=== PATIENT | female | born 1965 | race Caucasian/White ===

== ENCOUNTER 2018-10-22 08:21 | Inpatient (IN) ==
[2018-10-22] MEDS ORDERED: Metoprolol Tartrate 25 MG Tablet PO ONE (09:00)
[2018-10-22] MEDS ORDERED: Sodium Chlor 0.9% Inj 500 ML IV.CONT ONE (09:00)
[2018-10-22] MEDS ORDERED: Chlorhexidine Gluconate 2% 1 Pack (2 Cloths) TOPICAL ONE (09:00)
[2018-10-22] MEDS ORDERED: ceFAZolin 2 GM IV; once IV.SIG ONE (10:00)
[2018-10-22] MEDS ORDERED: Bupivacaine/Epinephrine PF Inj 0.5% 30 ML Vial ONE (11:38)
[2018-10-22] MEDS ORDERED: fentaNYL Citrate Inj 250 MCG/5 ML Ampul ONE (11:48)
[2018-10-22] MEDS ORDERED: Post-op Orders (for Pharmacy) OTHER STA (13:22)
[2018-10-22] MEDS ORDERED: diphenhydrAMINE HCl 12.5 MG/5 ML Elixir UDC PO PRN (13:22)
[2018-10-22] MEDS ORDERED: Naloxone Inj 0.4 MG/ML Vial IV.PUSH PRN (13:25)
[2018-10-22] MEDS ORDERED: Morphine Inj 30 MG/30 ML PCA.VIAL PCA PRN (13:25)
[2018-10-22] MEDS ORDERED: Sugammadex Inj 200 MG/2 ML Vial IV.PUSH ONE (13:36)
[2018-10-22] MEDS ORDERED: *morphine SULFATE 4 MG/ML PERIprocedure ONLY ONE ×3 (13:55→15:09)
[2018-10-22] MEDS ORDERED: Morphine Inj 30 MG/30 ML PCA.VIAL PCA ONE (13:55)
[2018-10-22] MEDS ORDERED: KCL 20 mEq/D5W/NaCl 0.45% Inj 1,000 ML ONE (13:55)
[2018-10-22] MEDS ORDERED: Scopalamine 1.5 MG Patch T-DERMAL PRN (14:55)
[2018-10-22] MEDS ORDERED: REMOVE OLD SCOPOLAMINE PATCH T-DERMAL PRN (15:00)
[2018-10-22] MEDS: KCL 20 mEq/D5W/NaCl 0.45% Inj 1,000 ML IV.CONT SCH ×2 (15:02→20:17)
[2018-10-22] MEDS: Enoxaparin Inj 40 MG/0.4 ML Syringe SQ SCH (19:14)
[2018-10-22] MEDS: ceFAZolin 1 GM Premix Inj 1 GM/50 ML IV.SIG SCH (20:13)
[2018-10-22] MEDS ORDERED: lamoTRIgine 25 MG TABLET PO ONE (23:45)
[2018-10-22] MEDS: Acetaminophen-HYDROcodone 325/7.5 Liq 15 ML UDC PO PRN (23:47)
[2018-10-23] MEDS: KCL 20 mEq/D5W/NaCl 0.45% Inj 1,000 ML IV.CONT SCH ×5 (00:02→19:31)
[2018-10-23] MEDS: ceFAZolin 1 GM Premix Inj 1 GM/50 ML IV.SIG SCH ×2 (04:32→12:26)
[2018-10-23 06:15] LABS: Eos % (Auto) 0.1 % (0.0-4.0); Hematocrit 36.1 % (35.0-46.0); Hemoglobin 12.5 gm/dL (11.6-15.3); Lymph % (Auto) 9.3 % (9.0-44.0); Mean Corpuscular HGB Conc 34.7 % (32.0-36.0); Mean Corpuscular Hemoglobin 31.7 pg (27.0-34.0); Mean Corpuscular Volume 91.4 fL (80.0-100.0); Mean Platelet Volume 9.9 fL (7.0-11.0); Mono # (Auto) 0.5 th/mm3 (0.0-0.9); Mono % (Auto) 4.4 % (0.0-8.0); Neut # (Auto) 9.4 th/mm3 (1.8-7.7); Neut % (Auto) 86.2 % (16.0-70.0); Platelet Count 230 th/mm3 (150-450); Red Blood Count 3.95 mil/mm3 (4.00-5.30); White Blood Count 10.9 th/mm3 (4.0-11.0)
[2018-10-23 06:30] LABS: Calcium 8.2 mg/dL (8.5-10.1); Magnesium 2.4 mg/dL (1.5-2.5); Potassium 4.6 meq/L (3.5-5.1)
[2018-10-23] MEDS ORDERED: lamoTRIgine 25 MG TABLET PO SCH ×2 (09:00→21:00)
--- NOTE | 2018-10-23 09:53 | P.PNGS ---
Subjective Patient reports: no new complaints (denies SOB, chest pain or palpitations. ), no flatus Physical Exam Vital signs: Vital Signs 10/22/18 13:43 10/22/18 14:00 10/22/18 14:15 Temperature 97.6 F Pulse Rate 96 H 72 85 Respiratory Rate 20 20 16 Blood Pressure 164/90 H 143/86 H 160/74 H Pulse Oximetry 90 L 96 96 10/22/18 15:00 10/22/18 15:15 10/22/18 17:07 Temperature 98.0 F 97.6 F Pulse Rate 70 64 67 Respiratory Rate 20 20 18 Blood Pressure 161/61 H 154/78 H 161/77 H Pulse Oximetry 97 97 90 L 10/22/18 20:00 10/22/18 22:50 10/23/18 00:00 Temperature 97.4 F L 97.6 F Pulse Rate 63 92 H 64 Respiratory Rate 18 16 18 Blood Pressure 125/71 156/73 H 135/84 Pulse Oximetry 92 L 92 L 94 L 10/23/18 02:01 10/23/18 04:00 10/23/18 07:54 Temperature 98.0 F 97.3 F L Pulse Rate 65 69 Respiratory Rate 18 18 Blood Pressure 113/72 128/68 Pulse Oximetry 92 L 95 98 10/23/18 08:00 Temperature 97.5 F L Pulse Rate 59 L Respiratory Rate 18 Blood Pressure 167/80 H Pulse Oximetry 96 Intake & Output 10/22/18 10/23/18 10/23/18 18:59 06:59 18:59 Intake Total 910 / 910 2480 / 2480 Output Total 5 / 5 1200 / 1200 Balance 905 / 905 1280 / 1280 Weight 96.3 kg 95.2 kg Intake: IV 850 / 850 2300 / 2300 D5W/1/2NS + KCL 20 mEq Inj 1, 2000 / 1999 000 ML @ 125 mls/hr IV.CONT . Q8H [facility] Rx#:[id number] LR 1000 mL Inj 1,000 ML @ 30 800 / 800 mls/hr IV.CONT .Q24H [facility] Rx#: [id number] Ofirmev Inj 1,000 mg In 100 ml 200 / 200 @ 400 mls/hr IV.SIG Q6H [facility] Rx# :[id number] Ancef 1 GM Premix Inj 1 gm In 100 / 100 50 ml @ 100 mls/hr IV.SIG Q8H [facility] Rx#:[id number] Ancef 2 GM Premix Inj 2 gm In 50 / 50 50 ml @ 100 mls/hr IV.SIG ONCE ONE Rx#:[id number] Oral 60 / 60 180 / 180 Output: Urine 1200 / 1200 Estimated Blood Loss 5 / 5 Other: Date of Last Bowel Movement 10/21/18 10/21/18 Weight On Admission 94 kg Narrative: GENERAL: SKIN: Warm and dry. HEAD: Normocephalic. EYES: No scleral icterus. No injection or drainage. NECK: Supple, trachea midline. No JVD or lymphadenopathy. CARDIOVASCULAR: Regular rate and rhythm without murmurs, gallops, or rubs. RESPIRATORY: Breath sounds equal bilaterally. No accessory muscle use. GASTROINTESTINAL: Abdomen soft, normal post operative tenderness, laparoscopic sites WNL, mildly distended. MUSCULOSKELETAL: No cyanosis, or edema. BACK: Nontender without obvious deformity. No CVA tenderness. Results - Labs 10/23/18 05:48 10/23/18 05:48 Laboratory Results - last 24 hr 10/23/18 10/23/18 05:48 05:48 WBC 10.9 RBC 3.95 L Hgb 12.5 Hct 36.1 MCV 91.4 MCH 31.7 MCHC 34.7 RDW 14.0 Plt Count 230 MPV 9.9 Neut % (Auto) 86.2 H Lymph % (Auto) 9.3 [place] % (Auto) 4.4 Eos % (Auto) 0.1 Baso % (Auto) 0.0 Neut # (Auto) 9.4 H Lymph # (Auto) 1.0 [place] # (Auto) 0.5 Eos # (Auto) 0.0 Baso # (Auto) 0.0 WBC Differential . Differential Comment Auto diff final Sodium 138 Potassium 4.6 Chloride 106 Carbon Dioxide 29.0 Anion Gap 3 L BUN 13 Creatinine 0.96 Estimated GFR 61 L Random Glucose 130 H Calcium 8.2 L Magnesium 2.4 Assessment and Plan - Assessment (1) Hypothyroidism Code(s): E03.9 - Hypothyroidism, unspecified Status: Chronic (2) Depression Code(s): F32.9 - Major depressive disorder, single episode, unspecified Status : Chronic (3) Status post laparoscopic sleeve gastrectomy Code(s): Z98.84 - Bariatric surgery status Status: Acute (4) Seizure disorder Code(s): G40.909 - Epilepsy, unspecified, not intractable, without status epilepticus Status: Chronic - Plan POD #1 s/p laparoscopic sleeve gastrectomy. tolerating clear liquids well, advance to full. Ambulate ad brianna Continue IS and SCD. Restart home meds. Code Status: full Discussed Condition With: patient (1) Hypothyroidism Qualifiers: Hypothyroidism type: unspecified Qualified Code(s): E03.9 - Hypothyroidism, unspecified (2) Depression Qualifiers: Depression Type: major depressive disorder
[2018-10-23] MEDS: Levothyroxine 50 MCG Tablet PO SCH (12:20)
[2018-10-23] MEDS: Duloxetine 60 MG DR Capsule PO SCH (12:21)
[2018-10-23] MEDS: Acetaminophen-HYDROcodone 325/7.5 Liq 15 ML UDC PO PRN ×2 (12:22→19:28)
[2018-10-23] MEDS: Enoxaparin Inj 40 MG/0.4 ML Syringe SQ SCH (19:28)
[2018-10-23] MEDS ORDERED: levETIRAcetam 500 MG Tablet PO SCH (22:30)
[2018-10-24] MEDS: lamoTRIgine 25 MG TABLET PO SCH ×3 (01:12→20:37)
[2018-10-24] MEDS: KCL 20 mEq/D5W/NaCl 0.45% Inj 1,000 ML IV.CONT SCH ×3 (01:13→14:25)
[2018-10-24] MEDS: Acetaminophen-HYDROcodone 325/7.5 Liq 15 ML UDC PO PRN ×3 (01:42→13:54)
[2018-10-24] MEDS: Levothyroxine 50 MCG Tablet PO SCH (05:56)
--- NOTE | 2018-10-24 08:44 | P.CONNEU ---
History of Present Illness Service: Neurology Primary Care Provider: Sabrina Paiz Chief Complaint: Seizure History of Present Illness: 53-year-old female admitted for abdominal surgery. Spell had an episode of altered mentation reduced responsiveness. She has a history of seizures neurology was consulted for further evaluation. Patient states she was given Narcan and her symptoms improved. States she had a history of seizures since teenage years. Overall well controlled last seizure was 8 months ago. Prior seizures usually has slurred speech followed by altered mentation stiffening occasionally incontinence occasional bite her tongue feel a bit confused afterwards but she will recollect and know that she had an event. On this particular occasion she states nothing like that occurred. She states she is really had full-blown G TCAs. She was on Lamictal however stopped taking it. She tolerated it well. She is followed by neurology in the [place] area. She otherwise doing well denies any headache visual loss focal weakness feels well. There is no family history of seizures febrile seizures or concussion injury. She states etiology for her seizures is not known. Review of Systems All other systems reviewed negative except as stated in HPI PMFSH - History History Provided By: Patient - Medical History Medical History: Medical History (Last Updated 10/22/18 @ 09:42 by Stephanie Hoffman) COPD (chronic obstructive pulmonary disease) Elevated LFTs Fatigue Sleep apnea Depression Hx of hysterectomy Hypothyroidism Seizure - Surgical History Surgical History: Surgical History (Last Reviewed 10/22/18 @ 09:12 by Stephanie Hoffman) Hx of removal of ovary Hx of repair of left rotator cuff Hx of shoulder surgery - Tobacco History Second Hand Smoke Exposure: No Smoking Status: Former smoker - Alcohol History How Often Do You Have a Drink Containing Alcohol: Never - Substance Use History Substance History: No History of Abuse - Travel History Recent Travel in the [place] Within the Last 8 Weeks: No Recent Travel Out of the Country Within the Last 8 Weeks: No - Immunization History Tetanus Immunization: <5 Years Hx Influenza Vaccine This Season: No Medications and Allergies Active Medications: Active Medications Hydrocodone Bitart/Acetaminophen (Hycet 325/7.5 Mg Liq) 15 ml PO Q6H PRN PRN Reason: PAIN SCALE 6 TO 10 Last Admin: 10/24/18 07:43 Dose: 15 ml Diphenhydramine HCl (Benadryl Inj) 25 mg IV.PUSH Q6H PRN PRN Reason: ITCHING Diphenhydramine HCl (Benadryl Liq) 25 mg PO Q6H PRN PRN Reason: ITCHING Duloxetine HCl (Cymbalta) 60 mg PO DAILY [facility] Last Admin: 10/23/18 12:21 Dose: 60 mg Enalaprilat (Vasotec Inj) 1.25 mg IV.PUSH Q6H PRN PRN Reason: SYS BP GREATER THAN 160 MMHG Last Admin: 10/23/18 20:33 Dose: 1.25 mg Enoxaparin Sodium (Lovenox Inj) 40 mg SQ Q24H [facility] Last Admin: 10/23/18 19:28 Dose: 40 mg Potassium Chloride/Dextrose/Sod Cl (D5w/1/2ns + Kcl 20 Meq Inj) 1,000 mls @ 125 mls/hr IV.CONT .Q8H [facility] Last Admin: 10/24/18 06:01 Dose: Not Given Lamotrigine (Lamictal) 50 mg PO BID [facility] Last Admin: 10/24/18 01:12 Dose: Not Given Levetiracetam (Keppra) 500 mg PO BID [facility] Last Admin: 10/24/18 01:12 Dose: 500 mg Levothyroxine Sodium (Synthroid) 50 mcg PO DAILY@0600 [facility] Last Admin: 10/24/18 05:56 Dose: 50 mcg Ondansetron HCl (Zofran Inj) 4 mg IV.PUSH Q6H PRN PRN Reason: NAUSEA OR VOMITING Last Admin: 10/24/18 07:43 Dose: 4 mg Pantoprazole Sodium (Protonix) 40 mg PO DAILY [facility] Last Admin: 10/23/18 08:45 Dose: 40 mg Patch Removal (Remove Old Patch) 1 each T-DERMAL Q3D PRN PRN Reason: SEE LABEL COMMENTS Scopolamine (Transderm-Scop 1.5 Mg Patch.72hr) 1 patch T-DERMAL Q3D PRN PRN Reason: NAUSEA NOT RELIEVED BY ZOFRAN Sodium Chloride (Ns Flush) 2 ml IV.FLUSH BID [facility] Last Admin: 10/23/18 20:24 Dose: 2 ml Sodium Chloride (Ns Flush) 2 ml IV.FLUSH UNSCH PRN PRN Reason: FLUSH AFTER USING IV ACCESS Allergies Allergy/AdvReac Type Severity Reaction Status Date / Time No Known Allergies Allergy Verified 10/22/18 09:12 Home Medications Medication Instructions Recorded Confirmed Type duloxetine [Cymbalta] 60 mg PO DAILY 10/19/18 10/22/18 History lamotrigine 25 mg PO DAILY 10/19/18 10/22/18 History levothyroxine [Synthroid] 50 mcg PO DAILY 10/19/18 10/22/18 History Exam Vital signs: Vital Signs 10/23/18 12:22 10/23/18 16:00 10/23/18 20:00 Temperature 97.3 F L 97.6 F 97.8 F Pulse Rate 60 69 70 Respiratory Rate 20 18 17 Blood Pressure 147/83 H 154/80 H 172/94 H Pulse Oximetry 97 95 94 L 10/24/18 00:00 Temperature 97.9 F Pulse Rate 63 Respiratory Rate 16 Blood Pressure 159/82 H Pulse Oximetry 94 L Intake & Output 10/23/18 10/24/18 10/24/18 18:59 06:59 18:59 Intake Total 1820 / 1820 2440 / 2440 Output Total 1650 / 1650 Balance 170 / 170 2440 / 2440 Weight 97.1 kg Intake: IV 1100 / 1100 1000 / 1000 D5W/1/2NS + KCL 20 mEq Inj 1, 850 / 850 1000 / 1000 000 ML @ 125 mls/hr IV.CONT . Q8H [facility] Rx#:[id number] Ofirmev Inj 1,000 mg In 100 ml 200 / 200 @ 400 mls/hr IV.SIG Q6H [facility] Rx# :[id number] Ancef 1 GM Premix Inj 1 gm In 50 / 50 50 ml @ 100 mls/hr IV.SIG Q8H [facility] Rx#:[id number] Oral 720 / 720 1440 / 1440 Output: Urine 1650 / 1650 Other: # Voids 3 Date of Last Bowel Movement 10/21/18 Narrative: GENERAL: in NAD, SKIN: Warm and dry. HEAD: Atraumatic. Normocephalic. EYES: Pupils equal and round. No scleral icterus. ENT: No nasal bleeding or discharge. Mucous membranes pink and moist. NECK: Trachea midline. No JVD. CARDIOVASCULAR: Regular rate and rhythm. RESPIRATORY: No accessory muscle use. MUSCULOSKELETAL: Extremities without clubbing, cyanosis, or edema. NEUROLOGICAL: Awake and alert. No aphasia, fluent articulate, No facial asymmetry, eomi, VFF, No drift, Motor grossly within normal limits. Five out of 5 muscle strength in the arms and legs. Tone normal in all 4 limbs, no neglect, ambulating with her IV pole in her room without difficulty PSYCHIATRIC: Appropriate mood and affect; insight and judgment normal. - Constitutional no acute distress - Routine HEENT Exam Head: Present: normocephalic Eye: Present: EOMI Results - Labs CBC & Chem 7: 10/23/18 05:48 10/23/18 05:48 Review/Management - Diagnosis (1) Hypothyroidism Code(s): E03.9 - Hypothyroidism, unspecified Status: Chronic Current Visit: Yes (2) Depression Code(s): F32.9 - Major depressive disorder, single episode, unspecified Status : Chronic Current Visit: Yes (3) Status post laparoscopic sleeve gastrectomy Code(s): Z98.84 - Bariatric surgery status Status: Acute Current Visit: Yes (4) Seizure disorder Code(s): G40.909 - Epilepsy, unspecified, not intractable, without status epilepticus Status: Chronic Current Visit: Yes - Review/Management Plan: Episode possibly related to opiates with apparent rapid resolution after the use of Narcan per patient She apparently had taken morphine and states she does not take opiates may be opiate olivia. Thus episode may been opiate related History of seizures since teenage years. Possible complex partial temporal lobe seizures. Will need further records from outpatient neurologist Recommendation Resume Lamictal Follow-up EEG Discharge planning if EEG is negative She can follow-up with neurology in the outpatient setting 2-4 weeks (1) Hypothyroidism Qualifiers: Hypothyroidism type: unspecified Qualified Code(s): E03.9 - Hypothyroidism, unspecified (2) Depression Qualifiers: Depression Type: major depressive disorder
[2018-10-24] MEDS: Duloxetine 60 MG DR Capsule PO SCH (08:49)
[2018-10-24] MEDS: Metoprolol Tartrate 25 MG Tablet PO SCH ×2 (14:24→20:36)
[2018-10-24] MEDS: Enoxaparin Inj 40 MG/0.4 ML Syringe SQ SCH (17:13)
--- NOTE | 2018-10-24 18:04 | MG ---
cc: Shashank Byrd MD EEG NUMBER: [id number] INDICATION: A 53-year-old, COPD, seizures hydrocodone, Keppra, Lamictal. TECHNIQUE: 7 Hz symmetric posterior rhythm is seen to 60 microvolts. He appears to fall asleep with some sleep activity, but does not quite reach stage II sleep. Some snoring is noted by the tech and some vertex sharp waves were seen. Some sleep spindles consistent with stage II sleep along with K complexes. Hyperventilation not performed. Photic stimulation is performed without significant posterior driving. IMPRESSION: Some mild diffuse theta slowing consistent with mild diffuse encephalopathy, but no focal abnormality was noted. No seizure activity is seen. Shashank Byrd MD DJM/ct , 05:22 PM , 05:25 PM
[2018-10-25] MEDS: KCL 20 mEq/D5W/NaCl 0.45% Inj 1,000 ML IV.CONT SCH ×2 (02:16→08:46)
[2018-10-25] MEDS: Levothyroxine 50 MCG Tablet PO SCH (05:20)
[2018-10-25 08:35] VITALS: BP 135/89; PULSE 71; RESP 17; TEMP 97.6; O2SAT 95
[2018-10-25] MEDS: Duloxetine 60 MG DR Capsule PO SCH (08:48)
[2018-10-25] MEDS: Metoprolol Tartrate 25 MG Tablet PO SCH (08:48)
[2018-10-25] MEDS: lamoTRIgine 25 MG TABLET PO SCH (08:48)
--- NOTE | 2018-10-25 09:20 | P.PNGS ---
Subjective Patient reports: no new complaints, feels better, tolerating liquids well ( Denies chest pain, palpitations or shortness of breath.), no flatus Physical Exam Vital signs: Vital Signs 10/24/18 09:34 10/24/18 16:00 10/24/18 20:00 Temperature 98 F 98.3 F Pulse Rate 78 66 Respiratory Rate 18 18 Blood Pressure 134/75 139/87 Pulse Oximetry 96 94 L 93 L 10/25/18 00:00 10/25/18 08:00 Temperature 98.1 F 97.6 F Pulse Rate 75 71 Respiratory Rate 20 17 Blood Pressure 118/60 135/89 Pulse Oximetry 96 95 Intake & Output 10/24/18 10/25/18 10/25/18 18:59 06:59 18:59 Intake Total 1959 1480 / 1480 Balance 1959 1480 / 1480 Weight 96.3 kg Intake: IV 1000 / 1000 1000 / 1000 D5W/1/2NS + KCL 20 mEq Inj 1, 1000 / 1000 1000 / 1000 000 ML @ 125 mls/hr IV.CONT . Q8H [facility] Rx#:[id number] Oral 960 / 960 480 / 480 Other: # Voids 4 3 # Bowel Movements 0 Narrative: GENERAL: in NAD, SKIN: Warm and dry. HEAD: Atraumatic. Normocephalic. EYES: Pupils equal and round. No scleral icterus. ENT: No nasal bleeding or discharge. Mucous membranes pink and moist. NECK: Trachea midline. No JVD. CARDIOVASCULAR: Regular rate and rhythm. RESPIRATORY: No accessory muscle use. MUSCULOSKELETAL: Extremities without clubbing, cyanosis, or edema. NEUROLOGICAL: Awake and alert. No aphasia, fluent articulate, No facial asymmetry, eomi, VFF, No drift, Motor grossly within normal limits. Five out of 5 muscle strength in the arms and legs. Tone normal in all 4 limbs, no neglect, ambulating with her IV pole in her room without difficulty PSYCHIATRIC: Appropriate mood and affect; insight and judgment normal. Results - Labs 10/23/18 05:48 10/23/18 05:48 Assessment and Plan - Assessment (1) Hypothyroidism Code(s): E03.9 - Hypothyroidism, unspecified Status: Chronic (2) Depression Code(s): F32.9 - Major depressive disorder, single episode, unspecified Status : Chronic (3) Status post laparoscopic sleeve gastrectomy Code(s): Z98.84 - Bariatric surgery status Status: Acute (4) Seizure disorder Code(s): G40.909 - Epilepsy, unspecified, not intractable, without status epilepticus Status: Chronic - Plan POD #2 s/p laparoscopic sleeve gastrectomy. tolerating full liquid continue. Ambulate ad brianna Continue IS and SCD. awaiting EEG, possible seizure activity overnight. DC home if ok with neurology. (1) Hypothyroidism Qualifiers: Hypothyroidism type: unspecified Qualified Code(s): E03.9 - Hypothyroidism, unspecified (2) Depression Qualifiers: Depression Type: major depressive disorder
--- NOTE | 2018-10-25 10:05 | P.PNNEU ---
Subjective Subjective Comments: No cp, no dyspnea, no tobin, no focal weakness, no vision loss. No seizure activity Active Medications: Active Medications Hydrocodone Bitart/Acetaminophen ([place] 7.5/325) 1 tab PO Q6H PRN PRN Reason: ABDOMINAL PAIN Last Admin: 10/25/18 08:48 Dose: 1 tab Diphenhydramine HCl (Benadryl Inj) 25 mg IV.PUSH Q6H PRN PRN Reason: ITCHING Diphenhydramine HCl (Benadryl Liq) 25 mg PO Q6H PRN PRN Reason: ITCHING Duloxetine HCl (Cymbalta) 60 mg PO DAILY [facility] Last Admin: 10/25/18 08:48 Dose: 60 mg Enalaprilat (Vasotec Inj) 1.25 mg IV.PUSH Q6H PRN PRN Reason: SYS BP GREATER THAN 160 MM[facility] Last Admin: 10/23/18 20:33 Dose: 1.25 mg Enoxaparin Sodium (Lovenox Inj) 40 mg SQ Q24H [facility] Last Admin: 10/24/18 17:13 Dose: 40 mg Potassium Chloride/Dextrose/Sod Cl (D5w/1/2ns + Kcl 20 Meq Inj) 1,000 mls @ 125 mls/hr IV.CONT .Q8H [facility] Last Admin: 10/25/18 08:46 Dose: Not Given Lamotrigine (Lamictal) 50 mg PO BID [facility] Last Admin: 10/25/18 08:48 Dose: 50 mg Levothyroxine Sodium (Synthroid) 50 mcg PO DAILY@0600 [facility] Last Admin: 10/25/18 05:20 Dose: 50 mcg Metoclopramide HCl (Reglan Inj) 10 mg IV.PUSH Q6H PRN PRN Reason: NAUSEA OR VOMITING Last Admin: 10/24/18 20:44 Dose: 10 mg Metoprolol Tartrate (Lopressor) 12.5 mg PO BID [facility] Last Admin: 10/25/18 08:48 Dose: 12.5 mg Miscellaneous (Pill Splitter) 1 each OTHER UNSCH [facility] Ondansetron HCl (Zofran Inj) 4 mg IV.PUSH Q6H PRN PRN Reason: NAUSEA OR VOMITING Last Admin: 10/25/18 02:16 Dose: 4 mg Pantoprazole Sodium (Protonix) 40 mg PO DAILY [facility] Last Admin: 10/25/18 08:48 Dose: 40 mg Patch Removal (Remove Old Patch) 1 each T-DERMAL Q3D PRN PRN Reason: SEE LABEL COMMENTS Scopolamine (Transderm-Scop 1.5 Mg Patch.72hr) 1 patch T-DERMAL Q3D PRN PRN Reason: NAUSEA NOT RELIEVED BY ZOFRAN Sodium Chloride (Ns Flush) 2 ml IV.FLUSH BID [facility] Last Admin: 10/25/18 08:49 Dose: Not Given Sodium Chloride (Ns Flush) 2 ml IV.FLUSH UNSCH PRN PRN Reason: FLUSH AFTER USING IV ACCESS Allergies/Adverse Reactions: Allergies Allergy/AdvReac Type Severity Reaction Status Date / Time No Known Allergies Allergy Verified 10/22/18 09:12 Review of Systems All other systems reviewed negative except as stated in HPI Physical Exam Vital signs: Vital Signs 10/24/18 16:00 10/24/18 20:00 10/25/18 00:00 Temperature 98 F 98.3 F 98.1 F Pulse Rate 78 66 75 Respiratory Rate 18 18 20 Blood Pressure 134/75 139/87 118/60 Pulse Oximetry 94 L 93 L 96 10/25/18 08:00 Temperature 97.6 F Pulse Rate 71 Respiratory Rate 17 Blood Pressure 135/89 Pulse Oximetry 95 Intake & Output 10/24/18 10/25/18 10/25/18 18:59 06:59 18:59 Intake Total 1959 1480 / 1480 Balance 1959 1480 / 1480 Weight 96.3 kg Intake: IV 1000 / 1000 1000 / 1000 D5W/1/2NS + KCL 20 mEq Inj 1, 1000 / 1000 1000 / 1000 000 ML @ 125 mls/hr IV.CONT . Q8H [facility] Rx#:[id number] Oral 960 / 960 480 / 480 Other: # Voids 4 3 # Bowel Movements 0 Narrative: GENERAL: in NAD, SKIN: Warm and dry. HEAD: Atraumatic. Normocephalic. EYES: Pupils equal and round. No scleral icterus. ENT: No nasal bleeding or discharge. NECK: Trachea midline. No JVD. CARDIOVASCULAR: Regular rate and rhythm. RESPIRATORY: No accessory muscle use. MUSCULOSKELETAL: Extremities without clubbing, cyanosis, or edema. NEUROLOGICAL: Awake and alert. No aphasia, fluent articulate, No facial asymmetry, eomi, VFF, No drift, Motor grossly within normal limits. Five out of 5 muscle strength in the arms and legs. Tone normal in all 4 limbs, no neglect, PSYCHIATRIC: Appropriate mood and affect; insight and judgment normal. - Constitutional no acute distress - Routine HEENT Exam Head: Present: normocephalic Eye: Present: EOMI Review/Management - Diagnosis (1) Hypothyroidism Code(s): E03.9 - Hypothyroidism, unspecified Status: Chronic Current Visit: Yes (2) Depression Code(s): F32.9 - Major depressive disorder, single episode, unspecified Status : Chronic Current Visit: Yes (3) Status post laparoscopic sleeve gastrectomy Code(s): Z98.84 - Bariatric surgery status Status: Acute Current Visit: Yes (4) Seizure disorder Code(s): G40.909 - Epilepsy, unspecified, not intractable, without status epilepticus Status: Chronic Current Visit: Yes - Review/Management Plan: Episode possibly related to opiates with apparent rapid resolution after the use of Narcan per patient She apparently had taken morphine and states she does not take opiates may be opiate olivia. Thus episode may been opiate related History of seizures since teenage years. Possible complex partial temporal lobe seizures. Will need further records from outpatient neurologist Recommendation Continue Lamictal Follow-up EEG; negative for seizure activity DC planning today from neurology She can follow-up with neurology in the outpatient setting 2-4 weeks (1) Hypothyroidism Qualifiers: Hypothyroidism type: unspecified Qualified Code(s): E03.9 - Hypothyroidism, unspecified (2) Depression Qualifiers: Depression Type: major depressive disorder
--- NOTE | 2018-11-01 11:23 | MP ---
cc: Derrick Warren MD DATE OF OPERATION: 10/22/2018 PREOPERATIVE DIAGNOSIS: Severe obesity with a BMI of 36, complicated by obstructive sleep apnea. POSTOPERATIVE DIAGNOSIS: Severe obesity with a BMI of 36, complicated by obstructive sleep apnea. PROCEDURE PERFORMED: Laparoscopic vertical sleeve gastrectomy over a 36-[place] ViSiGi bougie. SURGEON: Derrick Warren MD CRISIS INTERVENTION SPECIALIST: Larry Mccartney. Dr. Mccartney's assistance was necessary for the procedure due to the complexity of the procedure. Dr. Mccartney assisted with manipulation and exposure during the procedure. The administrative assistant coordinator provided by [employer] was utilized on the back table and managing the camera. ANESTHESIA: General endotracheal anesthesia. ESTIMATED BLOOD LOSS: Scant. FINDINGS: Fatty liver. SPECIMENS: None. COMPLICATIONS: None. PROCEDURE IN DETAIL: The patient was brought to the operating room and placed on the operating table in supine position, bilateral sequential inflation device placed on lower extremities. General anesthesia was instituted. Antibiotics was initiated. The abdomen was prepped and draped sterilely. A point 15 cm distal to the xiphoid in the midline was anesthetized with 0.25% Marcaine with epinephrine. A skin incision was made, 5-mm Optiview port placed under direct vision and pneumoperitoneum created. Under direct vision, three 5-mm left upper quadrant, a 15-mm right upper quadrant, 5-mm right upper quadrant ports placed. Prior to placement of all ports the skin and peritoneum were anesthetized with 0.25% Marcaine with epinephrine. The patient was placed in reverse Trendelenburg position left side up, the Nanci-Flex retractor was placed. The left lobe of the liver was retracted. The vasculature along the greater curvature of the stomach was using harmonic scalpel starting a distance 5-cm proximal to the pylorus and carried towards the angle of His. The angle of His was taken down bluntly. Posterior ligamentous attachments were sharply . A 36-[place] ViSiGi bougie was placed at the start of the case, was placed on suction. Division of the stomach started 5 cm proximal to the pylorus and carried towards the angle of His to completely excise approximately 80% of the stomach. This was performed using an Quinter Flex stapler at the pylorus. The first firing was with a black load, followed by a green load and four gold loads. All staple loads were reinforced with SeamGuard. A distance of 2 cm was left from the angle incisura and the staple line and a distance of 1 cm left from the GE junction and the staple line. The pylorus was then occluded, methylene blue tinged saline was instilled. There was no evidence of extravasation. The gastrocolic ligament was then sutured to the posterior leaflet of the SeamGuard using a 2-0 Vicryl suture in a running manner. Bleeding points were controlled with Evicel. The excised stomach was removed from the peritoneal cavity through the 15-mm port site in an Endopouch. The fascia at the 15-mm port site was approximated with 0 Vicryl suture. The CO2 was then released, all ports were removed, all skin incisions closed with 4-0 Monocryl. The abdominal wall was cleaned. A sterile dressing was placed. The patient was awakened and taken to the recovery room. MD DINAH Leung/danish , 11:01 AM , 11:04 AM
== END 2018-10-25 10:31 | disposition home or self-care (01) ==
LOC: HSDI 08:21 → N07 15:40
PROVIDERS: ADMIT Surgery; ATTEND Surgery